=== PATIENT | female | born 1945 | race Caucasian/White ===

== ENCOUNTER 2018-02-08 05:16 | Inpatient (IN) | payer MEDICARE, MEDICAID ==
[2018-02-08] MEDS ORDERED: hydrALAZINE 20 MG/ML VIAL SLOW IVP PRN (06:38)
[2018-02-08] MEDS ORDERED: Ondansetron HCl/PF 4 MG/2 ML Vial IVP PRN (06:38)
[2018-02-08] MEDS ORDERED: Mag-Al 1200 mg/1200 mg/30 ML UDCUP PO PRN (06:38)
[2018-02-08] MEDS ORDERED: Chloraseptic Spray 180 ml Bottle PO PRN (06:38)
[2018-02-08] MEDS ORDERED: Loratadine 10 MG TAB PO PRN (06:38)
[2018-02-08] MEDS ORDERED: Artificial Tears 18 DROP/0.9 ML EA EYE PRN (06:38)
[2018-02-08] MEDS ORDERED: Sodium Chloride 0.65% Nasal 44 ML BOT EA NARE PRN (06:38)
[2018-02-08] MEDS ORDERED: HYDROcodone/Acetaminophen 5/325 mg Tablet PO PRN (06:38)
[2018-02-08] MEDS ORDERED: Loperamide HCl 2 MG CAP PO PRN (06:38)
[2018-02-08] MEDS ORDERED: Zolpidem Tartrate 5 MG TAB PO PRN (06:38)
[2018-02-08] MEDS ORDERED: Senokot 8.6 MG TAB PO PRN (06:38)
[2018-02-08] MEDS ORDERED: Eucerin (Mineral Oil/Petrolatum,White) 30 gm Jar TOP PRN (06:38)
[2018-02-08] MEDS ORDERED: Ondansetron ODT 4 MG TAB PO PRN (06:38)
[2018-02-08] MEDS ORDERED: Diabetic Tussin 200 MG/10 ML UDCUP PO PRN (06:38)
[2018-02-08] MEDS ORDERED: Acetaminophen 325 MG TAB PO PRN (06:38)
[2018-02-08] MEDS ORDERED: Milk Of Magnesia 30 ML UDCUP PO PRN (06:38)
[2018-02-08 07:22] LABS: #Basophils 0.1 thou/uL (0.0-0.2); #Eosinphils 0.2 thou/uL (0.0-0.7); #Lymphocytes 4.2 thou/uL (1.20-3.40); #Monocytes 1.5 thou/uL (0.11-0.59); %Basophils 0.9 % (0.0-1.0); %Eosinophils 1.2 % (0.0-10.0); %Monocytes 10.8 % (0.0-10.0); %Neutrophils 57.1 % (42.0-75.0); Hemoglobin 12.2 g/dL (12.0-16.0); Mean Corpuscular HGB CONC 33.6 g/dL (32.0-36.0); Mean Corpuscular Hemoglobin 31.9 pg (27.0-31.0); Mean Corpuscular Volume 94.8 fl (81.0-99.0); Mean Platelet Volume 8.3 fL (7.4-10.4); Platelet Count 216 thou/uL (130-400); RBC Distribution Width 13.3 % (11.5-14.5); Red Blood Cell (RBC) Count 3.82 mill/uL (4.20-5.40)
[2018-02-08 07:25] LABS: ALT (SGPT) 11 U/L (8-55); AST (SGOT) 29 U/L (5-34); Albumin 3.5 g/dL (3.4-4.8); Alkaline Phosphatase 134 U/L (40-150); Anion Gap 13 mmol/L (10-20); BUN (Urea Nitrogen) 12 mg/dL (9.8-20.1); Bilirubin, Total 0.4 mg/dL (0.2-1.2); Calc. Creatinine Clearance 0 mL/min (70-130); Calcium 8.6 mg/dL (7.8-10.44); Carbon Dioxide 20 mmol/L (23-31); Chloride 105 mmol/L (98-107); Estimated GFR-MDRD 30; Globulin 3.3 g/dL (2.4-3.5); Glucose 110 mg/dL (83-110); Potassium 3.4 mmol/L (3.5-5.1); Protein, Total 6.8 g/dL (6.0-8.3); Sodium 135 mmol/L (136-145)
[2018-02-08 07:27] LABS: INR-International Normal Ratio 1.3; PTT 36.5 SEC (22.9-36.1); Prothrombin Time 16.1 SEC (12.0-14.7)
[2018-02-08 07:36] VITALS: BMI 33.9
[2018-02-08] MEDS ORDERED: Enoxaparin Sodium 100 MG/ML SYRINGE SC SCH (08:00)
[2018-02-08] MEDS ORDERED: Potassium Chloride 20 MEQ TAB PO SCH (08:00)
--- NOTE | 2018-02-08 09:27 | ULT ---
BILATERAL LOWER EXTREMITY VENOUS DUPLEX ULTRASOUND INCLUDING COLOR AND SPECTRAL DOPPLER IMAGING: HISTORY: A 72-year-old female with a history of bilateral lower extremity edema. FINDINGS: Exam performed from groin to ankle including visualized greater saphenous, common femoral, superficia l femoral, profunda femoral, popliteal, trifurcation, and posterior tibial vein regions. There is ph asic flow at all levels with normal compressibility and normal augmentation. No intraluminal thrombu s. IMPRESSION: No evidence for deep venous thrombosis. POS: [facility]
[2018-02-08] MEDS: guaiFENesin ER 600 MG TAB PO SCH ×2 (09:38→20:45)
[2018-02-08] MEDS: cefTRIAXone\\ROCEPHIN 1 GM in Sodium Chloride 0.9% 100 ML IVPB SCH (09:39)
[2018-02-08] MEDS: Sodium Chloride 0.9% 1,000 ML IV SCH ×2 (09:44→18:08)
--- NOTE | 2018-02-08 10:12 | NM ---
VENTILATION PERFUSION LUNG SCAN: INDICATION: Shortness of breath. Assess for pulmonary embolus. COMPARISON: Correlation is made to chest film of 02/08/18 which shows opacities in the left lung base. FINDINGS: Ventilation scan performed with inhalation of 15 mCi of Xenon gas. Anterior and posterior images obt ained. No ventilation defect. Decreased ventilation in the left lung base consistent with x-ray findings. No significant air trapping. Perfusion scan performed with administration of 6 mCi of Technetium labeled MAA IV. Lungs imaged in 8 projections. No perfusion defect. Decreased perfusion in the left lung base consistent with chest x-ray findings. IMPRESSION: Low probability of pulmonary embolus. POS: [facility]
[2018-02-08] MEDS: Azithromycin 500 MG in Sodium Chloride 0.9% 250 ML 250 ML IVPB SCH (10:39)
--- NOTE | 2018-02-08 13:14 | HP ---
PRIMARY CARE PHYSICIAN: Dr. Jaswant Garza. REASON FOR ADMISSION: Transfer from [facility] for left lower lobe pneumonia. HISTORY OF PRESENT ILLNESS: A 72-year-old female who has history of hypertension, CAD, COPD who init ially went to [facility] for evaluation of left-sided pleuritic chest pain and short ness of breath which was started 2 days ago. The patient reports that she has left upper abdomen and left lower chest pain which is pleuritic in nature, gets worse with deep breathing and coughing asso ciated with shortness of breath. She was feeling subjective fever at home, but she did not measure t emperature. When she went to [facility], she was having low grade fever. She was h aving only a dry cough without any phlegm. She denies any hemoptysis. She was experiencing wheezing . She denies any constipation or diarrhea. She denies any hematuria, melena, hematemesis. For these symptoms, patient initially went to primary care physician who attributed to be due to musc le strain and told that if symptoms get worse, then she needs to go to emergency room. The patient was not feeling any better and her symptoms were getting worse. Her pain was not control led with routine pain medication and that is why she went to [facility]. Patient reports that for last 2 weeks, she had a vein ablation done 1 week ago in right lower extremi ty and 2 weeks ago was done in left lower extremity. The patient denies any calf tenderness. She de nies any dizziness, syncope, orthopnea, PND or leg swelling. The patient was treated with Rocephin and azithromycin at [facility]. Subsequently, she was transferred to our emergency room and admitted to medical floor. She had elevated D-dimer and that is why we did VQ scan and ultrasound of the lower extremity, both w ere negative for any DVT or thromboembolic disorder. Patient was given 1 time dose of Lovenox 1 mg p er kg after admission. REVIEW OF SYSTEMS: The following complete review of systems was negative, unless otherwise mentioned in the HPI or below: Constitutional: Weight loss or gain, ability to conduct usual activities. Sk in: Rash, itching. Eyes: Double vision, pain. ENT/Mouth: Nose bleeding, neck stiffness, pain, te nderness. Cardiovascular: Palpitations, dyspnea on exertion, orthopnea. Respiratory: Shortness of breath, wheezing, cough, hemoptysis, fever or night sweats. Gastrointestinal: Poor appetite, abdom inal pain, heartburn, nausea, vomiting, constipation, or diarrhea. Genitourinary: Urgency, frequenc y, dysuria, nocturia. Musculoskeletal: Pain, swelling. Neurologic/Psychiatric: Anxiety, depressio n. Allergy/Immunologic: Skin rash, bleeding tendency. Please see my HPI for pertinent positive and negative. All other review of systems reviewed and nega tive except as mentioned in the HPI. EMERGENCY ROOM COURSE: Patient is given Rocephin 1 gram, DuoNeb therapy, Toradol 15 mg IV push. PAST MEDICAL HISTORY: Ischemic CVA; hypertension; dyslipidemia; COPD; fibromyalgia; coronary artery disease, required angioplasty; chronic kidney disease, stage 3; chronic venous insufficiency, require d vein ablation, left leg on 01/29/2018 in the right leg on 02/05/2018. PAST SURGICAL HISTORY: Vein ablation required in left leg in 01/29/2018 and right leg on 02/05/2018, ovarian tumor removed before hysterectomy. Subsequently, patient had a hysterectomy, eye surgery. PAST PSYCHIATRIC HISTORY: Anxiety, depression, bipolar disorder. SOCIAL HISTORY: Patient drinks alcohol socially. The patient denies any other illicit drug abuse. She is a former smoker. She quit smoking 10 years ago. FAMILY HISTORY: No strong family history of premature coronary artery disease, stroke or cancer. ALLERGIES: Patient is allergic to multiple drugs including CIPRO, DEPAKOTE, LIPITOR, MAGNESIUM SULFA TE, MORPHINE, REMERON, ZOCOR, ZYPREXA, SULFA DRUGS. CURRENT HOME MEDICATIONS: Aspirin 81 mg p.o. daily, pravastatin 20 mg p.o. at bedtime, Plavix 75 mg p.o. daily, Lasix 20 mg p.o. weekly, trazodone 100 mg p.o. daily, trandolapril 4 mg twice daily, Sero quel 100 mg twice daily, tramadol 100 mg twice daily, sumatriptan 50 mg as needed, Ventolin inhaler 2 puffs q.6 hourly p.r.n., coenzyme Q10 of 200 mg twice daily, vitamin B12 of 1000 mcg p.o. daily, mag nesium 250 mg daily, zinc 50 mg p.o. daily, folic acid 0.4 mg p.o. daily, Cymbalta 30 mg p.o. daily. PHYSICAL EXAMINATION: VITAL SIGNS: On arrival to our emergency room, blood pressure 112/58, pulse 65, respiratory rate 20, temperature 98.1, saturation 92% on room air, weight 95.2 kilograms. GENERAL: Patient is currently alert, awake, no obvious acute distress. HEAD: Normocephalic, atraumatic. EYES: Pupils round, reactive to light. Extraocular muscle intact. ENT: Oropharynx within normal limits. Moist mucous membranes. No oral lesions. No pharyngeal eryt justice, no exudate. NECK: Supple, no JVD, no thyromegaly, no carotid bruit. LUNGS: Left lower lobe rales noted. No wheezing, no rhonchi. Bronchial breath sound at left lower lobe. CARDIAC: S1, S2 appears regular. No murmur, no gallop, no rub. ABDOMEN: Soft, bowel sounds present, nontender, nondistended. No organomegaly, no mass, no suprapub ic tenderness. BACK: Unremarkable, no CVA tenderness. EXTREMITIES: Upper extremity: Passive movements of all joints are normal. Lower extremities: No e vonnie. Good peripheral pulsation, no calf tenderness. SKIN: No skin rash. HEMATOLOGICAL: No lymphadenopathy. PSYCHIATRIC: Normal affect. NEUROLOGIC: Nonfocal examination. Patient is moving all 4 limbs. Plantar bilateral flexor. SIGNIFICANT LABORATORY DATA: EKG showing normal sinus rhythm, nonspecific ST-T changes. CT of the a bdomen and pelvis done at [facility] which showed a left lower lobe consolidation wi th septal consolidation concerning for pulmonary infarction. Ultrasound of lower extremity negative for any DVT. Ventilation perfusion scan negative for any pulmonary embolism. Chest x-ray showed lef t base, left pleural parenchymal changes in left base. SIGNIFICANT LABORATORY DATA: WBC 14.0, hemoglobin 12.2, platelet 216. The INR 1.3. D-dimer 3.8. B MP: Sodium 135, potassium 3.4, chloride 105, carbon dioxide 20, anion gap 13, BUN 12, creatinine 1.6 6, glucose 110, calcium 8.6. LFT: AST 29, ALT 11, alkaline phosphatase 134, albumin 3.5. ASSESSMENT AND PLAN/IMPRESSION: 1. Left lower lobe community-acquired pneumonia. Based on patient's allergy profile, we will treat her with Rocephin 1 gram q.24 hours and azithromycin 500 mg IV daily, Mucinex 600 mg twice daily, Duo Neb q.6 hourly. For her pleuritic pain, we will give her Solu-Medrol 20 mg IV q.8 hourly. We will c ontrol her pain with Tylenol or [place]. 2. Hyponatremia, hypokalemia. Patient will be given potassium 40 mEq p.o. one time dose. Patient w ill be given gentle IV fluid and NS at 75 mL per hour. 3. Chronic kidney disease, stage 3. We will continue with IV fluid and will repeat BMP tomorrow. W e will avoid nephrotoxin agent. 4. Sepsis. The patient has leukocytosis, low grade fever and underlying source of infection is pneu monia. The patient is already on appropriate antibiotic therapy with Rocephin and azithromycin. We will follow up on culture result. 5. Coronary artery disease. We will continue aspirin 81 mg p.o. daily, Plavix 75 mg p.o. daily, pra vastatin 20 mg p.o. daily. 6. Hypertension. We will continue trandolapril 4 mg p.o. daily if blood pressure permits. 7. Dyslipidemia. We will continue pravastatin 20 mg p.o. daily. 8. Anxiety, depression, bipolar disorder. We will continue Seroquel 100 mg p.o. daily, trazodone 10 0 mg p.o. daily. 9. Obesity with BMI 33. Dietary education given, weight loss education given. Healthy lifestyle me asures discussed with the patient. 10. Elevated D-dimer. The patient has low true probability of pulmonary embolism, but we did ultras ound of the lower extremity and negative for deep venous thrombosis. A similarly we did VQ scan quinn use of renal insufficiency and that also showed very low probability of PE. At this point, thromboem bolic disorder completely excluded. We will continue with the treatment for pneumonia. 11. Deep venous thrombosis prophylaxis. Patient will be given Lovenox 40 mg subcu daily. 12. Gastrointestinal prophylaxis. Protonix 40 mg p.o. daily. CODE STATUS: The patient is FULL CODE. Patient does not have any surrogate decision maker. Disposition plan based on clinical course. Plan of care discussed with the patient and family member at bedside in detail.
[2018-02-08 13:34] LABS: Bilirubin Negative (Negative); Blood, Urine Small (Negative); Clarity CLEAR (Clear); Glucose, Urine (Dipstick) Negative (Negative); Leukocyte Negative (Negative); Nitrite Negative (Negative); Protein, Urine (Dipstick) Trace mg/dL (Neg-Trace); Specific Gravity, Urine 1.016 (1.002-1.036); Urobilinogen 0.2 mg/dL (0.2-1.0)
[2018-02-08 13:35] LABS: Bacteria/HPF None Seen HPF (None Seen); Hyaline Casts/LPF 0-3 HYALINE CAST LPF (0-3 Hyaline); Pathc Cast-AUWi Flag 0.14 (0-2.49); Squamous Epithelial 0-3 HPF (0-3); WBC/HPF 0-3 HPF (0-3)
[2018-02-08] MEDS: Simvastatin 5 MG TAB PO SCH (20:45)
[2018-02-09] MEDS: Sodium Chloride 0.9% 1,000 ML IV SCH ×3 (02:44→20:35)
[2018-02-09] MEDS: Azithromycin 500 MG in Sodium Chloride 0.9% 250 ML 250 ML IVPB SCH (07:42)
[2018-02-09] MEDS: guaiFENesin ER 600 MG TAB PO SCH ×2 (07:43→20:35)
[2018-02-09] MEDS: Aspirin 81 mg Enteric Coated Tablet PO SCH (07:43)
[2018-02-09] MEDS: Enoxaparin Sodium 40 MG/0.4 ML SYRINGE SC SCH (07:43)
[2018-02-09] MEDS: traZODone HCl 50 MG TAB PO SCH (07:43)
[2018-02-09] MEDS: Clopidogrel Bisulfate 75 MG TAB PO SCH (07:44)
[2018-02-09] MEDS ORDERED: TRANDOLAPRIL 4 MG PO SCH (09:00)
[2018-02-09] MEDS ORDERED: Pravastatin Sodium 20 MG TAB PO SCH (09:00)
[2018-02-09] MEDS: cefTRIAXone\\ROCEPHIN 1 GM in Sodium Chloride 0.9% 100 ML IVPB SCH (09:18)
[2018-02-09 09:23] LABS: Anion Gap 15 mmol/L (10-20); BUN (Urea Nitrogen) 12 mg/dL (9.8-20.1); Calc. Creatinine Clearance 62 mL/min (70-130); Calcium 8.9 mg/dL (7.8-10.44); Carbon Dioxide 16 mmol/L (23-31); Chloride 110 mmol/L (98-107); Estimated GFR-MDRD 43; Glucose 144 mg/dL (83-110); Potassium 4.2 mmol/L (3.5-5.1); Sodium 137 mmol/L (136-145)
--- NOTE | 2018-02-09 14:27 | PDOC.PN ---
- Subjective Encounter Start Date: 02/09/18 Encounter Start Time: 14:25 Subjective: feels a little better.having blood tinged cough -: no cp but SOB w exertion - Objective Resuscitation Status: Resuscitation Status FULL:Full Resuscitation MAR Reviewed: Yes Vital Signs & Weight: Vital Signs (12 hours) Temp Pulse Resp BP Pulse Ox 02/09/18 13:48 92 20 02/09/18 11:10 97.4 F L 87 14 118/72 94 L 02/09/18 08:00 98.6 F 88 16 95 02/09/18 07:13 98.6 F 88 16 121/72 93 L 02/09/18 06:13 92 L 02/09/18 06:11 86 20 92 L 02/09/18 04:00 98.6 F 90 18 123/74 94 L Weight Weight 210 lb I&O: 02/08/18 02/09/18 02/10/18 06:59 06:59 06:59 Intake Total 1780 480 Balance 1780 480 Result Diagrams: 02/08/18 06:58 02/09/18 08:52 Additional Labs: Microbiology 02/08/18 02:15 Venous blood - Left Hand Blood Culture - Preliminary Specimen has been received and culture in progress. No Growth to date. Laboratory Tests 02/08/18 02/09/18 06:58 08:52 Creatinine 1.66 H 1.23 H Phys Exam - Physical Examination Constitutional: NAD HEENT: PERRLA, moist MMs, sclera anicteric, oral pharynx no lesions Neck: no nodes, no JVD, supple, full ROM Respiratory: no rales, no rhonchi, wheezing present Cardiovascular: RRR, no significant murmur, no rub Gastrointestinal: soft, non-tender, no distention, positive bowel sounds Musculoskeletal: no edema, pulses present Neurological: non-focal, normal sensation, moves all 4 limbs Psychiatric: normal affect, A&O x 3 Skin: no rash Dx/Plan (1) CAP (community acquired pneumonia) Code(s): J18.9 - PNEUMONIA, UNSPECIFIED ORGANISM Status: Acute (2) Sepsis Code(s): A41.9 - SEPSIS, UNSPECIFIED ORGANISM Status: Acute (3) Acute on chronic kidney failure Code(s): N17.9 - ACUTE KIDNEY FAILURE, UNSPECIFIED; N18.9 - CHRONIC KIDNEY DISEASE, UNSPECIFIED Status: Acute (4) HTN (hypertension) Code(s): I10 - ESSENTIAL (PRIMARY) HYPERTENSION Status: Chronic (5) CAD (coronary artery disease) Code(s): I25.10 - ATHSCL HEART DISEASE OF [place] CORONARY ARTERY W/O ANG PCTRS Status: Chronic (6) HLD (hyperlipidemia) Code(s): E78.5 - HYPERLIPIDEMIA, UNSPECIFIED Status: Chronic (7) COPD (chronic obstructive pulmonary disease) Status: Chronic (8) Hyponatremia Code(s): E87.1 - HYPO-OSMOLALITY AND HYPONATREMIA Status: Resolved (9) Hypokalemia Code(s): E87.6 - HYPOKALEMIA Status: Resolved - Plan continue antibiotics, PT/OT, respiratory therapy, incentive spirometry, out of bed/ambulate, DVT proph w/SCDs cont empric ABx.follow final Cx results. -: cont nebs,steroids,o2 prn.wean as tolerated -: cont home meds as below.on ASA.plavix,statin,REGINE-I -: renal Fx imrpoved.monitor.hemodynamically stable -: Labs reviewed.recheck in am * . Review of Systems - Review of Systems Constitutional: weakness, malaise. negative: fever, chills, sweats, other ENT: negative: Ear Pain, Ear Discharge, Nose Pain, Nose Discharge, Nose Congestion, Mouth Pain, Mouth Swelling, Throat Pain, Throat Swelling, Other Respiratory: Cough, Sputum, Wheezing. negative: Dry, Shortness of Breath, Hemoptysis, SOB with Excertion, Pleuritic Pain Cardiovascular: negative: chest pain, palpitations, orthopnea, paroxysmal nocturnal dyspnea, edema, light headedness, other Gastrointestinal: negative: Nausea, Vomiting, Abdominal Pain, Diarrhea, Constipation, Melena, Hematochezia, Other Genitourinary: negative: Dysuria, Frequency, Incontinence, Hematuria, Retention , Other Musculoskeletal: negative: Neck Pain, Shoulder Pain, Arm Pain, Back Pain, Hand Pain, Leg Pain, Foot Pain, Other Neurological: negative: Weakness, Numbness, Incoordination, Change in Speech, Confusion, Seizures, Other - Medications/Allergies Allergies/Adverse Reactions: Allergies Allergy/AdvReac Type Severity Reaction Status Date / Time ciprofloxacin [From Cipro] Allergy Verified 02/08/18 07:29 divalproex sodium Allergy Verified 02/08/18 07:29 [From Depakote] egg Allergy Verified 02/08/18 07:29 Egg Derived Allergy Verified 02/08/18 07:29 magnesium sulfate Allergy Verified 02/08/18 07:30 mirtazapine [From Remeron] Allergy Verified 02/08/18 07:30 morphine Allergy Verified 02/08/18 07:30 olanzapine [From Zyprexa] Allergy Verified 02/08/18 07:30 red dye Allergy Verified 02/08/18 07:43 simvastatin Allergy Verified 02/08/18 07:30 Sulfa (Sulfonamide Allergy Verified 02/08/18 07:30 Antibiotics) Medications: Current Medications Acetaminophen (Tylenol) 650 mg PO Q4H PRN PRN Reason: Headache/Fever or Pain Hydrocodone Bitart/Acetaminophen (Loraine 5/325) 1 tab PO Q4H PRN PRN Reason: Moderate Pain (4-6) Albuterol/Ipratropium (Duoneb) 3 ml NEB [id number] [facility] Last Admin: 02/09/18 13:48 Dose: 3 ml Artificial Tears (Tears Naturale) 0 drop EA EYE PRN PRN PRN Reason: Dry Eyes Aspirin (Ecotrin) 81 mg PO DAILY [facility] Last Admin: 02/09/18 07:43 Dose: 81 mg Clopidogrel Bisulfate (Plavix) 75 mg PO DAILY [facility] Last Admin: 02/09/18 07:44 Dose: 75 mg Enoxaparin Sodium (Lovenox) 40 mg SC 0900 [facility] Last Admin: 02/09/18 07:43 Dose: 40 mg Guaifenesin (Robitussin Sf) 200 mg PO Q4H PRN PRN Reason: Cough Guaifenesin (Mucinex) 600 mg PO Q12HR [facility] Last Admin: 02/09/18 07:43 Dose: 600 mg Hydralazine HCl (Apresoline) 10 mg SLOW IVP Q4H PRN PRN Reason: Systolic BP > 180 Sodium Chloride (Normal Saline 0.9%) 1,000 mls @ 75 mls/hr IV .[id number] [facility] Last Admin: 02/09/18 07:49 Dose: Not Given Azithromycin 500 mg/ Sodium (Chloride) 250 mls @ 250 mls/hr IVPB 0900 [facility] Last Admin: 02/09/18 07:42 Dose: 250 mls Ceftriaxone Sodium 1 gm/ (Sodium Chloride) 100 mls @ 200 mls/hr IVPB 0800 [facility] Last Admin: 02/09/18 09:18 Dose: 100 mls Loperamide HCl (Imodium) 2 mg PO PRN PRN PRN Reason: Diarrhea/Loose Stools Loratadine (Claritin) 10 mg PO DAILYPRN PRN PRN Reason: Sinus Symptoms Methylprednisolone Sodium Succinate (Solu-Medrol) 20 mg IVP Q8HR [facility] Last Admin: 02/09/18 13:57 Dose: 20 mg Mineral Oil/White Petrolatum (Eucerin Cream) 0 gm TOP BIDPRN PRN PRN Reason: Dry Skin Ondansetron HCl (Zofran Odt) 4 mg PO Q6H PRN PRN Reason: Nausea/Vomiting Ondansetron HCl (Zofran) 4 mg IVP Q6H PRN PRN Reason: Nausea/Vomiting Pantoprazole Sodium (Protonix) 40 mg PO DAILY [facility] Last Admin: 02/09/18 07:43 Dose: 40 mg Phenol (Chloraseptic Fowler 180 Ml Bot) 0 ml PO PRN PRN PRN Reason: Sore Throat Quetiapine Fumarate (Seroquel) 100 mg PO DAILY [facility] Last Admin: 02/09/18 07:44 Dose: 100 mg Senna (Senokot) 2 tab PO HSPRN PRN PRN Reason: Constipation Simvastatin (Zocor) 10 mg PO HS [facility] Last Admin: 02/08/18 20:45 Dose: 10 mg Sodium Chloride ([place] Nasal Fowler 0.65%) 0 ml EA NARE QIDPRN PRN PRN Reason: Nasal Congestion Sodium Chloride (Flush - Normal Saline) 10 ml IVF Q12HR [facility] Last Admin: 02/09/18 07:49 Dose: Not Given Sodium Chloride (Flush - Normal Saline) 10 ml IVF PRN PRN PRN Reason: Saline Flush Trandolapril (Mavik) 4 mg PO DAILY [facility] Last Admin: 02/09/18 07:42 Dose: 4 mg Trazodone HCl (Desyrel) 100 mg PO DAILY [facility] Last Admin: 02/09/18 07:43 Dose: 100 mg Zolpidem Tartrate (Ambien) 5 mg PO HSPRN PRN PRN Reason: Insomnia
[2018-02-09] MEDS ORDERED: Benzonatate 100 MG CAP PO PRN (14:30)
[2018-02-09] MEDS: Simvastatin 5 MG TAB PO SCH (20:35)
[2018-02-10 05:22] LABS: #Lymphocytes 1.5 thou/uL (1.20-3.40); #Monocytes 0.7 thou/uL (0.11-0.59); #Neutrophils 17.6 thou/uL (1.40-6.50); %Lymphocytes 7.7 % (21.0-51.0); %Monocytes 3.6 % (0.0-10.0); %Neutrophils 88.7 % (42.0-75.0); Hemoglobin 12.6 g/dL (12.0-16.0); Mean Corpuscular HGB CONC 33.5 g/dL (32.0-36.0); Mean Corpuscular Hemoglobin 31.8 pg (27.0-31.0); Mean Corpuscular Volume 95.1 fl (81.0-99.0); Mean Platelet Volume 8.3 fL (7.4-10.4); Platelet Count 287 thou/uL (130-400); RBC Distribution Width 13.3 % (11.5-14.5); Red Blood Cell (RBC) Count 3.97 mill/uL (4.20-5.40); White Blood Cell (WBC) Count 19.8 thou/uL (4.8-10.8)
[2018-02-10 05:44] LABS: Anion Gap 17 mmol/L (10-20); BUN (Urea Nitrogen) 15 mg/dL (9.8-20.1); Calc. Creatinine Clearance 54 mL/min (70-130); Calcium 9.3 mg/dL (7.8-10.44); Carbon Dioxide 16 mmol/L (23-31); Chloride 111 mmol/L (98-107); Estimated GFR-MDRD 37; Glucose 136 mg/dL (83-110); Potassium 4.2 mmol/L (3.5-5.1); Sodium 140 mmol/L (136-145)
[2018-02-10] MEDS: traZODone HCl 50 MG TAB PO SCH (07:46)
[2018-02-10] MEDS: Azithromycin 500 MG in Sodium Chloride 0.9% 250 ML 250 ML IVPB SCH (07:47)
[2018-02-10] MEDS: Clopidogrel Bisulfate 75 MG TAB PO SCH (07:47)
[2018-02-10] MEDS: Aspirin 81 mg Enteric Coated Tablet PO SCH (07:47)
[2018-02-10] MEDS: guaiFENesin ER 600 MG TAB PO SCH ×2 (07:47→20:23)
[2018-02-10] MEDS: Enoxaparin Sodium 40 MG/0.4 ML SYRINGE SC SCH (07:50)
[2018-02-10] MEDS: cefTRIAXone\\ROCEPHIN 1 GM in Sodium Chloride 0.9% 100 ML IVPB SCH (09:11)
--- NOTE | 2018-02-10 13:26 | PDOC.PN ---
- Subjective Encounter Start Date: 02/10/18 Encounter Start Time: 13:24 Subjective: feels much better. no SOB @ rest ,some w ambulation-at baseline -: no fever/chills/cough - Objective Resuscitation Status: Resuscitation Status FULL:Full Resuscitation MAR Reviewed: Yes Vital Signs & Weight: Vital Signs (12 hours) Temp Pulse Resp BP Pulse Ox 02/10/18 08:00 98.4 F 65 18 97 02/10/18 07:29 65 18 93 L 02/10/18 07:21 97.8 F 67 16 143/64 H 94 L 02/10/18 05:11 87 20 95 02/10/18 04:00 98.3 F 83 18 135/80 92 L 02/10/18 02:26 94 L Weight Weight 210 lb I&O: 02/09/18 02/10/18 02/11/18 06:59 06:59 06:59 Intake Total 1780 2460 480 Balance 1780 2460 480 Result Diagrams: 02/10/18 05:06 02/10/18 05:06 Additional Labs: Microbiology 02/08/18 02:15 Venous blood - Left Hand Blood Culture - Preliminary Coagulase Neg Staphylococcus 02/08/18 02:00 Venous blood - Left Hand Blood Culture - Preliminary Coagulase Neg Staphylococcus Laboratory Tests 02/08/18 02/09/18 02/10/18 06:58 08:52 05:06 Creatinine 1.66 H 1.23 H 1.41 H Phys Exam - Physical Examination Constitutional: NAD HEENT: PERRLA, moist MMs, sclera anicteric, oral pharynx no lesions Neck: no nodes, no JVD, supple, full ROM Respiratory: no wheezing, no rales, no rhonchi, clear to auscultation bilateral Cardiovascular: RRR, no significant murmur, no rub Gastrointestinal: soft, non-tender, no distention, positive bowel sounds Musculoskeletal: no edema, pulses present Neurological: non-focal, normal sensation, moves all 4 limbs Psychiatric: normal affect, A&O x 3 Skin: no rash Dx/Plan (1) Coag negative Staphylococcus bacteremia Code(s): R78.81 - BACTEREMIA Status: Acute Comment: Unclear significance.2/ 2 (2) CAP (community acquired pneumonia) Code(s): J18.9 - PNEUMONIA, UNSPECIFIED ORGANISM Status: Acute Qualifiers: Laterality: right Lung location: middle lobe of lung Qualified Code(s): J18.1 - Lobar pneumonia, unspecified organism (3) Sepsis Code(s): A41.9 - SEPSIS, UNSPECIFIED ORGANISM Status: Acute (4) Acute on chronic kidney failure Code(s): N17.9 - ACUTE KIDNEY FAILURE, UNSPECIFIED; N18.9 - CHRONIC KIDNEY DISEASE, UNSPECIFIED Status: Acute (5) HTN (hypertension) Code(s): I10 - ESSENTIAL (PRIMARY) HYPERTENSION Status: Chronic (6) CAD (coronary artery disease) Code(s): I25.10 - ATHSCL HEART DISEASE OF [place] CORONARY ARTERY W/O ANG PCTRS Status: Chronic (7) HLD (hyperlipidemia) Code(s): E78.5 - HYPERLIPIDEMIA, UNSPECIFIED Status: Chronic (8) COPD (chronic obstructive pulmonary disease) Status: Chronic (9) Hyponatremia Code(s): E87.1 - HYPO-OSMOLALITY AND HYPONATREMIA Status: Resolved (10) Hypokalemia Code(s): E87.6 - HYPOKALEMIA Status: Resolved (11) LAKIA (obstructive sleep apnea) Code(s): G47.33 - OBSTRUCTIVE SLEEP APNEA (ADULT) (PEDIATRIC) Status: Chronic (12) Chronic CHF Code(s): I50.9 - HEART FAILURE, UNSPECIFIED Status: Chronic Qualifiers: Heart failure type: unspecified Qualified Code(s): I50.9 - Heart failure, unspecified - Plan PT/OT, incentive spirometry, DVT proph w/lovenox, DVT proph w/SCDs cont rocephin & AZITHROMYCIN for now.follow final Cx results -: not sure if Coag -ve staph is true infection Vs contaminanat -: will consult ID for same.clinically better -: leucocytosis is due to steroids.will taper now -: cont supportive care. * .add CPAP at night * CHf appears stable.BNP checked and minimally elevated .IVf stopped * ivett WALLACE early tomorrow am as pt has appt w her normalizer in afternoon in [place] * am labs Review of Systems - Review of Systems Constitutional: negative: fever, chills, sweats, weakness, malaise, other ENT: negative: Ear Pain, Ear Discharge, Nose Pain, Nose Discharge, Nose Congestion, Mouth Pain, Mouth Swelling, Throat Pain, Throat Swelling, Other Respiratory: SOB with Excertion. negative: Cough, Dry, Shortness of Breath, Hemoptysis, Pleuritic Pain, Sputum, Wheezing Cardiovascular: negative: chest pain, palpitations, orthopnea, paroxysmal nocturnal dyspnea, edema, light headedness, other Gastrointestinal: negative: Nausea, Vomiting, Abdominal Pain, Diarrhea, Constipation, Melena, Hematochezia, Other Genitourinary: negative: Dysuria, Frequency, Incontinence, Hematuria, Retention , Other Musculoskeletal: negative: Neck Pain, Shoulder Pain, Arm Pain, Back Pain, Hand Pain, Leg Pain, Foot Pain, Other Skin: negative: Rash, Lesions, [place], Bruising, Other Neurological: negative: Weakness, Numbness, Incoordination, Change in Speech, Confusion, Seizures, Other - Medications/Allergies Allergies/Adverse Reactions: Allergies Allergy/AdvReac Type Severity Reaction Status Date / Time ciprofloxacin [From Cipro] Allergy Verified 02/08/18 07:29 divalproex sodium Allergy Verified 02/08/18 07:29 [From Depakote] egg Allergy Verified 02/08/18 07:29 Egg Derived Allergy Verified 02/08/18 07:29 magnesium sulfate Allergy Verified 02/08/18 07:30 mirtazapine [From Remeron] Allergy Verified 02/08/18 07:30 morphine Allergy Verified 02/08/18 07:30 olanzapine [From Zyprexa] Allergy Verified 02/08/18 07:30 red dye Allergy Verified 02/08/18 07:43 simvastatin Allergy Verified 02/08/18 07:30 Sulfa (Sulfonamide Allergy Verified 02/08/18 07:30 Antibiotics) Medications: Current Medications Acetaminophen (Tylenol) 650 mg PO Q4H PRN PRN Reason: Headache/Fever or Pain Hydrocodone Bitart/Acetaminophen ([place] 5/325) 1 tab PO Q4H PRN PRN Reason: Moderate Pain (4-6) Albuterol/Ipratropium (Duoneb) 3 ml NEB [id number] [facility] Last Admin: 02/10/18 07:29 Dose: 3 ml Artificial Tears (Tears Naturale) 0 drop EA EYE PRN PRN PRN Reason: Dry Eyes Aspirin (Ecotrin) 81 mg PO DAILY [facility] Last Admin: 02/10/18 07:47 Dose: 81 mg Benzonatate (Tessalon) 100 mg PO Q4H PRN PRN Reason: Cough Clopidogrel Bisulfate (Plavix) 75 mg PO DAILY [facility] Last Admin: 02/10/18 07:47 Dose: 75 mg Enoxaparin Sodium (Lovenox) 40 mg SC 0900 [facility] Last Admin: 02/10/18 07:50 Dose: 40 mg Guaifenesin (Robitussin Sf) 200 mg PO Q4H PRN PRN Reason: Cough Guaifenesin (Mucinex) 600 mg PO Q12HR [facility] Last Admin: 02/10/18 07:47 Dose: 600 mg Hydralazine HCl (Apresoline) 10 mg SLOW IVP Q4H PRN PRN Reason: Systolic BP > 180 Azithromycin 500 mg/ Sodium (Chloride) 250 mls @ 250 mls/hr IVPB 0900 [facility] Last Admin: 02/10/18 07:47 Dose: 250 mls Ceftriaxone Sodium 1 gm/ (Sodium Chloride) 100 mls @ 200 mls/hr IVPB 0800 [facility] Last Admin: 02/10/18 09:11 Dose: 100 mls Loperamide HCl (Imodium) 2 mg PO PRN PRN PRN Reason: Diarrhea/Loose Stools Loratadine (Claritin) 10 mg PO DAILYPRN PRN PRN Reason: Sinus Symptoms Methylprednisolone Sodium Succinate (Solu-Medrol) 20 mg IVP Q8HR [facility] Last Admin: 02/10/18 05:40 Dose: 20 mg Mineral Oil/White Petrolatum (Eucerin Cream) 0 gm TOP BIDPRN PRN PRN Reason: Dry Skin Ondansetron HCl (Zofran Odt) 4 mg PO Q6H PRN PRN Reason: Nausea/Vomiting Ondansetron HCl (Zofran) 4 mg IVP Q6H PRN PRN Reason: Nausea/Vomiting Pantoprazole Sodium (Protonix) 40 mg PO DAILY [facility] Last Admin: 02/10/18 07:47 Dose: 40 mg Phenol (Chloraseptic [place] 180 Ml Bot) 0 ml PO PRN PRN PRN Reason: Sore Throat Quetiapine Fumarate (Seroquel) 100 mg PO DAILY [facility] Last Admin: 02/10/18 07:47 Dose: 100 mg Senna (Senokot) 2 tab PO HSPRN PRN PRN Reason: Constipation Simvastatin (Zocor) 10 mg PO HS [facility] Last Admin: 02/09/18 20:35 Dose: 10 mg Sodium Chloride ([place] Nasal [place] 0.65%) 0 ml EA NARE QIDPRN PRN PRN Reason: Nasal Congestion Sodium Chloride (Flush - Normal Saline) 10 ml IVF Q12HR [facility] Last Admin: 02/10/18 07:53 Dose: Not Given Sodium Chloride (Flush - Normal Saline) 10 ml IVF PRN PRN PRN Reason: Saline Flush Trazodone HCl (Desyrel) 100 mg PO DAILY [facility] Last Admin: 02/10/18 07:46 Dose: 100 mg Zolpidem Tartrate (Ambien) 5 mg PO HSPRN PRN PRN Reason: Insomnia
--- NOTE | 2018-02-10 20:00 | CON ---
DATE OF CONSULTATION: 02/10/2018 REASON FOR CONSULTATION: Bacteremia. HISTORY OF PRESENT ILLNESS: A 72-year-old patient who has a history of prior CVA, hypertension, COPD, coronary artery disease with previous angioplasty as well as venous insufficiency with recent venous ablations right and left lower extremity, who woke up from her sleep about 3 days ago with pleuritic chest pain , left lateral chest area. The patient went to her primary physician, who felt that she probably had a muscle sprain. Because of lack of improvement in the symptom, she went to the emergency room in [place] and was transferred to [place] and admitted. She had an EKG which showed normal sinus rhythm and CT showed a left lower consolidation which had wedge-shaped quality to it and concerning for pulmonary embolism. Because of her creatinine, VQ scan was done instead and this was a low probability study. The ultrasound of the lower extremities did not show any evidence of deep vein thrombosis though. She never had a temperature elevation documented. REVIEW OF SYSTEMS: Currently, the pain has improved. She denies any headaches , visual symptoms, sore throat, odynophagia, or dysphagia. No cough or sputum production or chest pain. No abdominal pain or diarrhea. No skin disorder. PAST MEDICAL HISTORY: Obesity, prior CVA, hypertension, coronary artery disease , COPD, prior angioplasty, renal insufficiency stage 3, venous insufficiency with recent vein ablation in the right and left lower extremities. The last one was done in the right leg, both in close succession completed procedures. PAST SURGICAL HISTORY: As above. In addition, she had a hysterectomy for tumor removal and cataract surgery. SOCIAL HISTORY: Lives in around [facility]. Drinks occasionally, former smoker, quit 10 years ago. FAMILY HISTORY: Noncontributory. ALLERGIES: CIPRO, LIPITOR, MAGNESIUM, REMERON, ZOCOR, SULFA DRUGS, ZYPREXA. HOME MEDICATIONS: Pravastatin, aspirin, Plavix, Lasix, trazodone, trandolapril , Seroquel, tramadol, sumatriptan, Ventolin inhaler, coenzyme Q, vitamin B12, magnesium 250, zinc, folic acid. PHYSICAL EXAMINATION: VITAL SIGNS: Here in the hospital have been within normal limits. T-max 99.1. She is little bit tachycardic earlier and little bit tachypneic. BP 140/60. SKIN: With little elliptical small ulcerated area in the midline of the lower abdominal fold region. She has peripheral IV access. No Olivares catheter. Voiding spontaneously. No lymphadenopathy. HEENT: Ocular movements conjugate. Oral cavity with no [place] teeth remaining in place. No oral cavity lesions. NECK: Supple. No jugular distention or carotid bruits. LUNGS: With symmetric air entry, faint crackles in the left base and very transient. HEART: S1, S2, regular rate with a soft aortic murmur. No S3 or S4. ABDOMEN: Soft, not distended or tender. No ascites. No bladder distention. The venous ablation entry sites do not have any inflammatory changes. Osteoarthrosis in knees and ankles. EXTREMITIES: Pulses 1+ in dorsalis pedis. Plantar responses are flexure. No edema. She is able to move extremities with no impediment. His cognitive function appears to be intact. LABORATORY DATA: Sodium 135, creatinine 1.66 and now 1.41. Liver profile normal. BNP 341, albumin 3.5. White cell count was 14,000, now is up to 19.8; hemoglobin 12; platelets 287 with 88% neutrophils. Urinalysis was fairly unremarkable. Blood cultures with coagulase negative Staph 2/2 sets obtained 15 minutes apart. The organism still to be identified and susceptibility tested. VQ scan low probability and a venogram lower extremities with no evidence of deep vein thrombosis. ASSESSMENT: 1. Coronary artery disease, chronic obstructive pulmonary disease, prior smoking. 2. Recent venous ablation procedures right and left lower extremities. 3. Sudden onset of pleuritic chest pain with wedge-shaped opacity in the opposite hemithorax on CT scan. DISCUSSION: The patient's symptoms are suggestive of either thromboembolism or a vascular process associated with the bacteremia or may be a more benign source. VQ scan with low probability still do not rule out thromboembolism in patients who have a high pretest likelihood of having pulmonary embolism. The bacteremia significance is yet unclear and we will have to wait for the final identification of the organism as well as the results of the 2D echocardiogram ordered. We will order a dedicated CT scan of chest without contrast to see if she has other areas of wedge-shaped opacity that would increase further the risk of pulmonary embolism or maybe infectious endocarditis. Of interest, the CT scan finding is in the opposite side of the patients chest pain. If the echocardiogram is normal, then we will have to reevaluate the nature of the organism isolated. At this point, we would discontinue antimicrobial therapy and maybe repeat blood cultures tomorrow. Venous ablation procedures are in frequently associated with thromboembolism. The rates in historical series ranged anywhere from 0.7-1 percent of the procedures performed. MTDD
[2018-02-10] MEDS: Simvastatin 5 MG TAB PO SCH (20:22)
--- NOTE | 2018-02-10 20:48 | CT ---
CT CHEST WITHOUT CONTRAST: 02/10/2018 HISTORY: Abnormality within the left lung base on recent CT examination of the abdomen and pelvis. History of shortness of breath. COMPARISON: None. TECHNIQUE: Serial axial CT imaging at 5 mm intervals, from the thoracic inlet through the upper abdomen, without contrast. Coronal reformatted imaging obtained. FINDINGS: The lack of contrast limits assessment of the viscera, bowel, and vascular structures, and for lympha denopathy. There is scattered atherosclerotic calcification of the aortic arch and descending thoracic aorta. L imited assessment of the upper abdomen demonstrates a small sliding type hiatal hernia. There is a v katia small, left-sided pleural effusion, similar when compared to the prior exam. There is a focal ar ea of consolidation involving the inferior-posterior left lower lobe on image 43, measuring 4.5 cm in transverse dimension. Aeration within the left lower lobe has improved since the prior CT of the ab domen and pelvis. No right-sided pleural effusion. No mediastinal or pericardial fluid. No pneumothorax on either side. A linear area of increased density in the lingula suggests volume loss. The osseous structures demonstrate no acute findings. IMPRESSION: Very small left pleural effusion with a focal area of mass like consolidation within the left lower l obe, inferiorly and posteriorly. Findings suggest infectious pneumonitis or aspiration. A follow-up CT examination is advised in 3-4 weeks, following treatment, to document resolution and thus exclude an underlying neoplastic process. CODE T POS: [facility]
[2018-02-11 04:55] LABS: #Basophils 0.1 thou/uL (0.0-0.2); #Eosinphils 0.1 thou/uL (0.0-0.7); #Lymphocytes 3.8 thou/uL (1.20-3.40); #Monocytes 1.1 thou/uL (0.11-0.59); #Neutrophils 10.3 thou/uL (1.40-6.50); %Basophils 0.4 % (0.0-1.0); %Eosinophils 0.5 % (0.0-10.0); %Lymphocytes 24.6 % (21.0-51.0); %Monocytes 7.2 % (0.0-10.0); %Neutrophils 67.3 % (42.0-75.0); Hemoglobin 11.5 g/dL (12.0-16.0); Mean Corpuscular HGB CONC 32.5 g/dL (32.0-36.0); Mean Corpuscular Hemoglobin 30.9 pg (27.0-31.0); Mean Corpuscular Volume 95.1 fl (81.0-99.0); Mean Platelet Volume 8.2 fL (7.4-10.4); Platelet Count 282 thou/uL (130-400); RBC Distribution Width 13.4 % (11.5-14.5); Red Blood Cell (RBC) Count 3.74 mill/uL (4.20-5.40); White Blood Cell (WBC) Count 15.3 thou/uL (4.8-10.8)
[2018-02-11 05:42] LABS: Anion Gap 14 mmol/L (10-20); BUN (Urea Nitrogen) 15 mg/dL (9.8-20.1); Calc. Creatinine Clearance 55 mL/min (70-130); Calcium 8.5 mg/dL (7.8-10.44); Carbon Dioxide 19 mmol/L (23-31); Chloride 111 mmol/L (98-107); Estimated GFR-MDRD 37; Glucose 88 mg/dL (83-110); Potassium 3.6 mmol/L (3.5-5.1); Sodium 140 mmol/L (136-145)
[2018-02-11] MEDS ORDERED: predniSONE 20 MG TAB PO SCH (08:00)
[2018-02-11] MEDS: Aspirin 81 mg Enteric Coated Tablet PO SCH (09:03)
[2018-02-11] MEDS: Clopidogrel Bisulfate 75 MG TAB PO SCH (09:03)
[2018-02-11] MEDS: guaiFENesin ER 600 MG TAB PO SCH ×2 (09:04→20:24)
[2018-02-11] MEDS: predniSONE 20 MG TAB PO SCH (09:04)
[2018-02-11] MEDS: traZODone HCl 50 MG TAB PO SCH (09:04)
[2018-02-11] MEDS: Enoxaparin Sodium 40 MG/0.4 ML SYRINGE SC SCH (09:04)
[2018-02-11] MEDS ORDERED: Cyclobenzaprine 10 MG TAB PO SCH (11:30)
--- NOTE | 2018-02-11 13:57 | ULT ---
BILATERAL RENAL ULTRASOUND: HISTORY: Chronic renal disease, abdominal pain. FINDINGS: The right kidney measures 8 cm in length and the left kidney measures 9.4 cm in length. No focal mas s or hydronephrosis is seen. The urinary bladder is unremarkable. IMPRESSION: No evidence of high-grade obstruction. POS: [facility]
--- NOTE | 2018-02-11 14:00 | PDOC.PN ---
- Subjective Encounter Start Date: 02/11/18 Encounter Start Time: 13:57 Subjective: c/o significant pain in lower back-reports chronic.a/w nausea -: no fever/chills - Objective Resuscitation Status: Resuscitation Status FULL:Full Resuscitation MAR Reviewed: Yes Vital Signs & Weight: Vital Signs (12 hours) Temp Pulse Resp BP Pulse Ox 02/11/18 13:36 77 16 963 H 02/11/18 13:20 98.4 F 81 20 151/80 H 95 02/11/18 09:09 155/85 H 02/11/18 08:00 98.2 F 78 18 96 02/11/18 07:24 98.2 F 78 18 175/77 H 96 02/11/18 06:38 94 L 02/11/18 06:34 71 18 99 02/11/18 05:00 92 L 02/11/18 04:58 97.6 F 75 22 H 121/65 92 L 02/11/18 02:00 95 Weight Weight 210 lb I&O: 02/10/18 02/11/18 02/12/18 06:59 06:59 06:59 Intake Total 2460 2290 Balance 2460 2290 Result Diagrams: 02/11/18 04:34 02/11/18 04:34 Additional Labs: Microbiology 02/08/18 02:15 Venous blood - Left Hand Blood Culture - Final Staph. hominus subsp. hominus 02/08/18 02:00 Venous blood - Left Hand Blood Culture - Final Staph. hominus subsp. hominus Phys Exam - Physical Examination Constitutional: NAD HEENT: PERRLA, moist MMs, sclera anicteric, oral pharynx no lesions Neck: no nodes, no JVD, supple, full ROM Respiratory: no wheezing, no rales, no rhonchi, clear to auscultation bilateral Cardiovascular: RRR, no significant murmur, no rub Gastrointestinal: soft, non-tender, no distention, positive bowel sounds Musculoskeletal: no edema, pulses present Neurological: non-focal, normal sensation, moves all 4 limbs Psychiatric: normal affect, A&O x 3 Skin: no rash Dx/Plan (1) Coag negative Staphylococcus bacteremia Code(s): R78.81 - BACTEREMIA Status: Acute Comment: Staph hominus 2/2 (2) CAP (community acquired pneumonia) Code(s): J18.9 - PNEUMONIA, UNSPECIFIED ORGANISM Status: Acute Qualifiers: Laterality: right Lung location: middle lobe of lung Qualified Code(s): J18.1 - Lobar pneumonia, unspecified organism (3) Sepsis Code(s): A41.9 - SEPSIS, UNSPECIFIED ORGANISM Status: Acute (4) Acute on chronic kidney failure Code(s): N17.9 - ACUTE KIDNEY FAILURE, UNSPECIFIED; N18.9 - CHRONIC KIDNEY DISEASE, UNSPECIFIED Status: Acute Comment: Improving (5) HTN (hypertension) Code(s): I10 - ESSENTIAL (PRIMARY) HYPERTENSION Status: Chronic (6) CAD (coronary artery disease) Code(s): I25.10 - ATHSCL HEART DISEASE OF [place] CORONARY ARTERY W/O ANG PCTRS Status: Chronic (7) HLD (hyperlipidemia) Code(s): E78.5 - HYPERLIPIDEMIA, UNSPECIFIED Status: Chronic (8) COPD (chronic obstructive pulmonary disease) Status: Chronic (9) Hyponatremia Code(s): E87.1 - HYPO-OSMOLALITY AND HYPONATREMIA Status: Resolved (10) Hypokalemia Code(s): E87.6 - HYPOKALEMIA Status: Resolved (11) [place] (obstructive sleep apnea) Code(s): G47.33 - OBSTRUCTIVE SLEEP APNEA (ADULT) (PEDIATRIC) Status: Chronic Comment: CPAP hs (12) Chronic CHF Code(s): I50.9 - HEART FAILURE, UNSPECIFIED Status: Chronic Qualifiers: Heart failure type: unspecified Qualified Code(s): I50.9 - Heart failure, unspecified - Plan continue antibiotics, PT/OT, respiratory therapy, incentive spirometry, out of bed/ambulate, DVT proph w/SCDs discussed w ID.will repeat blood Cx & check ECHo to r/o vegetation -: start Po Levaquin for now. -: Chest Ct c/w LLL PNA.clinically better -: will also check Renal US to r/o infection/stones etc -: no PE/DVT on admission scans.no fever * . Review of Systems - Review of Systems Constitutional: negative: fever, chills, sweats, weakness, malaise, other ENT: negative: Ear Pain, Ear Discharge, Nose Pain, Nose Discharge, Nose Congestion, Mouth Pain, Mouth Swelling, Throat Pain, Throat Swelling, Other Respiratory: negative: Cough, Dry, Shortness of Breath, Hemoptysis, SOB with Excertion, Pleuritic Pain, Sputum, Wheezing Cardiovascular: negative: chest pain, palpitations, orthopnea, paroxysmal nocturnal dyspnea, edema, light headedness, other Gastrointestinal: negative: Nausea, Vomiting, Abdominal Pain, Diarrhea, Constipation, Melena, Hematochezia, Other Genitourinary: negative: Dysuria, Frequency, Incontinence, Hematuria, Retention , Other Musculoskeletal: Back Pain. negative: Neck Pain, Shoulder Pain, Arm Pain, Hand Pain, Leg Pain, Foot Pain, Other Skin: negative: Rash, Lesions, [place], Bruising, Other Neurological: negative: Weakness, Numbness, Incoordination, Change in Speech, Confusion, Seizures, Other - Medications/Allergies Allergies/Adverse Reactions: Allergies Allergy/AdvReac Type Severity Reaction Status Date / Time ciprofloxacin [From Cipro] Allergy Verified 02/08/18 07:29 divalproex sodium Allergy Verified 02/08/18 07:29 [From Depakote] egg Allergy Verified 02/08/18 07:29 Egg Derived Allergy Verified 02/08/18 07:29 magnesium sulfate Allergy Verified 02/08/18 07:30 mirtazapine [From Remeron] Allergy Verified 02/08/18 07:30 morphine Allergy Verified 02/08/18 07:30 olanzapine [From Zyprexa] Allergy Verified 02/08/18 07:30 red dye Allergy Verified 02/08/18 07:43 simvastatin Allergy Verified 02/08/18 07:30 Sulfa (Sulfonamide Allergy Verified 02/08/18 07:30 Antibiotics) Medications: Current Medications Acetaminophen (Tylenol) 650 mg PO Q4H PRN PRN Reason: Headache/Fever or Pain Hydrocodone Bitart/Acetaminophen ([place] 5/325) 1 tab PO Q4H PRN PRN Reason: Moderate Pain (4-6) Last Admin: 02/11/18 09:03 Dose: 1 tab Albuterol/Ipratropium (Duoneb) 3 ml NEB [id number] [facility] Last Admin: 02/11/18 13:36 Dose: 3 ml Artificial Tears (Tears Naturale) 0 drop EA EYE PRN PRN PRN Reason: Dry Eyes Aspirin (Ecotrin) 81 mg PO DAILY [facility] Last Admin: 02/11/18 09:03 Dose: 81 mg Benzonatate (Tessalon) 100 mg PO Q4H PRN PRN Reason: Cough Clopidogrel Bisulfate (Plavix) 75 mg PO DAILY [facility] Last Admin: 02/11/18 09:03 Dose: 75 mg Enoxaparin Sodium (Lovenox) 40 mg SC 0900 [facility] Last Admin: 02/11/18 09:04 Dose: 40 mg Guaifenesin (Robitussin Sf) 200 mg PO Q4H PRN PRN Reason: Cough Guaifenesin (Mucinex) 600 mg PO Q12HR [facility] Last Admin: 02/11/18 09:04 Dose: 600 mg Hydralazine HCl (Apresoline) 10 mg SLOW IVP Q4H PRN PRN Reason: Systolic BP > 180 Levofloxacin (Levaquin) 500 mg PO 1100 [facility] Last Admin: 02/11/18 11:52 Dose: 500 mg Loperamide HCl (Imodium) 2 mg PO PRN PRN PRN Reason: Diarrhea/Loose Stools Loratadine (Claritin) 10 mg PO DAILYPRN PRN PRN Reason: Sinus Symptoms Mineral Oil/White Petrolatum (Eucerin Cream) 0 gm TOP BIDPRN PRN PRN Reason: Dry Skin Ondansetron HCl (Zofran Odt) 4 mg PO Q6H PRN PRN Reason: Nausea/Vomiting Ondansetron HCl (Zofran) 4 mg IVP Q6H PRN PRN Reason: Nausea/Vomiting Pantoprazole Sodium (Protonix) 40 mg PO DAILY [facility] Last Admin: 02/11/18 09:04 Dose: 40 mg Phenol (Chloraseptic [place] 180 Ml Bot) 0 ml PO PRN PRN PRN Reason: Sore Throat Prednisone (Prednisone) 20 mg PO QA-[facility] Last Admin: 02/11/18 09:04 Dose: 20 mg Quetiapine Fumarate (Seroquel) 100 mg PO DAILY [facility] Last Admin: 02/11/18 09:04 Dose: 100 mg Senna (Senokot) 2 tab PO HSPRN PRN PRN Reason: Constipation Simvastatin (Zocor) 10 mg PO HS [facility] Last Admin: 02/10/18 20:22 Dose: 10 mg Sodium Chloride ([place] Nasal [place] 0.65%) 0 ml EA NARE QIDPRN PRN PRN Reason: Nasal Congestion Sodium Chloride (Flush - Normal Saline) 10 ml IVF Q12HR [facility] Last Admin: 02/11/18 09:04 Dose: 10 ml Sodium Chloride (Flush - Normal Saline) 10 ml IVF PRN PRN PRN Reason: Saline Flush Trazodone HCl (Desyrel) 100 mg PO DAILY [facility] Last Admin: 02/11/18 09:04 Dose: 100 mg Zolpidem Tartrate (Ambien) 5 mg PO HSPRN PRN PRN Reason: Insomnia
[2018-02-11] MEDS: Simvastatin 5 MG TAB PO SCH (20:24)
--- NOTE | 2018-02-12 02:36 | CON ---
DATE OF CONSULTATION: 02/11/2018 CONSULTING PHYSICIAN: Malcolm Leggett M.D. REQUESTING PHYSICIAN: Dr. Espinoza. REASON FOR CONSULTATION: Chronic kidney disease. IMPRESSION: 1. Acute on chronic kidney disease, but much improved at this time of dictation. 2. Pneumonia, on treatment. 3. Metabolic acidosis. PLAN: 1. Continue current renal supportive measures. 2. Renally dose all medications and avoid potentially nephrotoxic agents. 3. Further management to be dependent on the clinical course. HISTORY OF PRESENT ILLNESS: History is that of 72-year-old female patient who presented here as a tr ansfer from [place] with features of pneumonia. The patient noted with a creatinine of 1.6 by o stephane the course of hospitalization, this has improved to creatinine of 1.39, putting this patient effe ctively as chronic kidney disease stage 3. Otherwise, the patient denies any other complaints. PAST MEDICAL HISTORY: Significant for chronic kidney disease, hypertension, ischemic CVA, dyslipidem ia, COPD, fibromyalgia, coronary artery disease. CURRENT MEDICATIONS: Reviewed and as documented on [employer]. SOCIAL HISTORY: Denies alcohol, no illicit drug. Remote tobacco use. FAMILY HISTORY: Not significantly related to presenting illness. ALLERGIES: CIPRO, DEPAKOTE, LIPITOR, MAGNESIUM SULFATE, MORPHINE, REMERON, ZOCOR, ZYPREXA and SULFA DRUGS. PHYSICAL EXAMINATION: GENERAL: The patient was found to be in mild respiratory distress and noted with the following vital signs. VITAL SIGNS: Afebrile with temperature 98.4, pulse 81, respiratory rate of 20, O2 saturation of 96%, blood pressure 151/80. HEENT: Unremarkable with moist oral mucosa. Neck was supple. No conjunctival injection or icterus. CARDIOVASCULAR SYSTEM: First and second heart sounds were heard. RESPIRATORY SYSTEM: Reveal some transmitted sounds from breathing machine. DIGESTIVE SYSTEM: Revealed an obese abdomen. EXTREMITIES: No peripheral edema. SKIN: No new gross rash. LYMPHATICS: No peripheral lymphadenopathy. SUMMARY: A 72-year-old female patient who presented here with slightly elevated creatinine above her baseline in the context of possible cytokine-mediated injury from pneumonia. Thank you for this consultation. We will follow with you.
[2018-02-12 05:13] LABS: #Eosinphils 0.1 thou/uL (0.0-0.7); #Lymphocytes 3.4 thou/uL (1.20-3.40); #Monocytes 0.7 thou/uL (0.11-0.59); %Basophils 0.4 % (0.0-1.0); %Eosinophils 1.1 % (0.0-10.0); %Monocytes 6.8 % (0.0-10.0); %Neutrophils 58.7 % (42.0-75.0); Hemoglobin 11.4 g/dL (12.0-16.0); Mean Corpuscular HGB CONC 33.3 g/dL (32.0-36.0); Mean Corpuscular Hemoglobin 31.6 pg (27.0-31.0); Mean Corpuscular Volume 94.8 fl (81.0-99.0); Mean Platelet Volume 8.1 fL (7.4-10.4); Platelet Count 251 thou/uL (130-400); RBC Distribution Width 13.3 % (11.5-14.5); White Blood Cell (WBC) Count 10.2 thou/uL (4.8-10.8)
[2018-02-12 05:32] LABS: Anion Gap 11 mmol/L (10-20); BUN (Urea Nitrogen) 12 mg/dL (9.8-20.1); Calc. Creatinine Clearance 65 mL/min (70-130); Calcium 8.1 mg/dL (7.8-10.44); Carbon Dioxide 24 mmol/L (23-31); Chloride 108 mmol/L (98-107); Estimated GFR-MDRD 45; Glucose 91 mg/dL (83-110); Potassium 3.5 mmol/L (3.5-5.1); Sodium 139 mmol/L (136-145)
--- NOTE | 2018-02-12 07:38 | PRG ---
DATE OF SERVICE: 02/11/2018 SUBJECTIVE: Feeling well, feeling better. No chest pain, little bit of back pain. No dyspnea or ab dominal pain. No diarrhea. Voiding without difficulty. OBJECTIVE: VITAL SIGNS: Temperature has been normal, T-max 98.4. Other vital signs are not remarkable. O2 sat 96%. GENERAL: Appears no distress. LUNGS: With basilar crackles left side. HEART: S1, S2, regular rate. ABDOMEN: Soft, not distended. No bladder distention. EXTREMITIES: No joint inflammatory activity. LABORATORY DATA: White cell count 15,000, hemoglobin 11, platelets 282. Sodium 140, creatinine 1.39 . Microbiology showed Staphylococcus hominis 2 samples positive for the same organism. Repeat CT of chest showed the area of left posterior basal infiltrate little bit of wedge shape to it. It is mor e rectangular really, renal ultrasound on 02/11 which showed no evidence of obstruction. The echocar diogram is pending. ASSESSMENT AND DISCUSSION: Coronary artery disease, chronic obstructive pulmonary disease, and recen t venous ablation of the pleuritic chest pain, leukocytosis. In view of the clinical and radiologica l findings, we will continue management for community-acquired pneumonia rather than thromboembolism or endocarditis. The organism in the blood cultures likely represents contamination of the sample ra ther than a true pathogen. But will wait for final results of echocardiogram. If no evidence of javy tation and discharge planning on oral doxycycline or levofloxacin for a few more days. Would advise repeating the duplex venogram of lower extremities in a few days to verify that there are no clots.
[2018-02-12] MEDS: Clopidogrel Bisulfate 75 MG TAB PO SCH (08:07)
[2018-02-12] MEDS: Aspirin 81 mg Enteric Coated Tablet PO SCH (08:07)
[2018-02-12] MEDS: guaiFENesin ER 600 MG TAB PO SCH (08:08)
[2018-02-12] MEDS: Enoxaparin Sodium 40 MG/0.4 ML SYRINGE SC SCH (08:08)
[2018-02-12] MEDS: predniSONE 20 MG TAB PO SCH (08:08)
--- NOTE | 2018-02-12 12:37 | PDOC.PN ---
- Subjective Encounter Start Date: 02/12/18 Encounter Start Time: 13:00 Subjective: Patient feeling a bit better. Off oxygen. Pain in left chest resolved. Now -: just with a little low back soreness. - Objective Resuscitation Status: Resuscitation Status FULL:Full Resuscitation MAR Reviewed: Yes Vital Signs & Weight: Vital Signs (12 hours) Temp Pulse Resp BP Pulse Ox 02/12/18 08:08 98.5 F 76 16 94 L 02/12/18 07:47 98.5 F 76 16 151/83 H 94 L 02/12/18 06:26 95 02/12/18 06:24 85 18 95 02/12/18 04:59 95 Weight Weight 210 lb I&O: 02/11/18 02/12/18 02/13/18 06:59 06:59 06:59 Intake Total 2290 1066 Balance 2290 1066 Result Diagrams: 02/12/18 04:32 02/12/18 04:32 Phys Exam - Physical Examination Constitutional: NAD HEENT: moist MMs Respiratory: no wheezing, no rales, no rhonchi Cardiovascular: RRR, no significant murmur Gastrointestinal: soft, positive bowel sounds Neurological: non-focal, moves all 4 limbs Psychiatric: normal affect, A&O x 3 Dx/Plan (1) CAP (community acquired pneumonia) Code(s): J18.9 - PNEUMONIA, UNSPECIFIED ORGANISM Status: Acute Qualifiers: Laterality: right Lung location: middle lobe of lung Qualified Code(s): J18.1 - Lobar pneumonia, unspecified organism Comment: On Levaquin, can d/c on oral tabs for 3 more days (2) Coag negative Staphylococcus bacteremia Code(s): R78.81 - BACTEREMIA Status: Resolved Comment: Staph hominus 2/2- likely contaminent per Dr. Dwyer. ECHO without evidence of vegitations. Repeat blood cultures NGTD (3) Sepsis Code(s): A41.9 - SEPSIS, UNSPECIFIED ORGANISM Status: Resolved (4) Acute on chronic kidney failure Code(s): N17.9 - ACUTE KIDNEY FAILURE, UNSPECIFIED; N18.9 - CHRONIC KIDNEY DISEASE, UNSPECIFIED Status: Acute Comment: Improving (5) CAD (coronary artery disease) Code(s): I25.10 - ATHSCL HEART DISEASE OF [place] CORONARY ARTERY W/O ANG PCTRS Status: Chronic (6) COPD (chronic obstructive pulmonary disease) Status: Chronic (7) Chronic CHF Code(s): I50.9 - HEART FAILURE, UNSPECIFIED Status: Chronic Qualifiers: Heart failure type: diastolic Qualified Code(s): I50.32 - Chronic diastolic (congestive) heart failure Comment: EF 55-60% with diastolic dysfunction 01/2018 (8) HLD (hyperlipidemia) Code(s): E78.5 - HYPERLIPIDEMIA, UNSPECIFIED Status: Chronic (9) HTN (hypertension) Code(s): I10 - ESSENTIAL (PRIMARY) HYPERTENSION Status: Chronic (10) [place] (obstructive sleep apnea) Code(s): G47.33 - OBSTRUCTIVE SLEEP APNEA (ADULT) (PEDIATRIC) Status: Chronic Comment: CPAP hs - Plan cont current plan of care, continue antibiotics, DVT proph w/lovenox, DVT proph w/SCDs Home today. * . - Discharge Day Encounter end time: 13:35
[2018-02-12 15:24] VITALS: BP 160/83; TEMP 97.8
[2018-02-12] MEDS ORDERED: traZODone HCl 50 MG TAB PO SCH (21:00)
--- NOTE | 2018-02-13 03:43 | DIS ---
PRIMARY CARE PHYSICIAN: Dr. Jaswant Garza. REASON FOR ADMISSION: Pneumonia. DIAGNOSES AT DISCHARGE: 1. Community-acquired pneumonia. 2. Coagulase-negative Staph bacteremia, likely contaminant. 3. Sepsis, resolved. 4. Acute on chronic kidney failure, improved. 5. Coronary artery disease. 6. Chronic obstructive pulmonary disease. 7. Chronic diastolic congestive heart failure. 8. Hyperlipidemia. 9. Hypertension. 10. Obstructive sleep apnea. PROCEDURES: 1. Bilateral lower extremity Doppler showing no evidence for DVT. 2. VQ scan showing low probability for pulmonary embolism. 3. CT of the chest without contrast showing a very small left-sided pleural effusion, similar to marlyn or exam, a focal area of consolidation involving the inferior-posterior left lower lobe suggestive of infectious pneumonitis or aspiration. 4. Bilateral renal ultrasound without any evidence of hydronephrosis or disease. 5. Echocardiogram showing a left ventricular ejection fraction of 55% to 60% and diastolic dysfuncti on. No evidence of valvular vegetations. CONSULTATIONS: 1. Infectious Disease, Dr. Dwyer. 2. Nephrology, Dr. Fowler. PERTINENT LABORATORY DATA: White blood cell count 14,000 up to 19,000 during the admission, down to 10,000 at discharge; creatinine 1.6 on admission, down to 1.1 at discharge. Blood culture initially from the emergency room showing 2/2 blood cultures positive for Staph hominis, subspecies hominis. R epeat blood cultures negative. SUMMARY OF HOSPITAL COURSE: This is a 72-year-old female with a history of COPD, coronary artery dis ease, hypertension, who presented to the [facility] with left-sided pleuritic chest pain. She also had subjective fevers. The patient was noted to have a pneumonia as well as an eleva evelyn D-dimer. She was given antibiotics and transferred here and had a negative VQ scan and negative ultrasound of lower extremities. The patient's initial blood cultures grew bacteria as above. Dr. Sylvia rodriguez with Infectious Disease was consulted. He determined that this was likely a contamination rathe r than a true pathogen. We did do the echocardiogram to rule out any infectious endocarditis. He re commended switching to levofloxacin for a few more days and a repeat ultrasound of the lower extremit ies as an outpatient to make sure that there were no blood clots. The patient was doing well the day of discharge, off of oxygen without any chest pain so he can be discharged home. DISCHARGE MANAGEMENT: Discharged home. Follow up with Dr. Garza early next week. We will need a r epeat ultrasound of the lower extremities at that time. ACTIVITY: As tolerated. DIET: Healthy heart, low sodium diet. DISCHARGE MEDICATIONS: 1. Levofloxacin 500 mg daily, 3 more tabs. 2. Aspirin 81 mg daily. 3. Clopidogrel 75 mg daily. 4. Pravastatin 20 mg daily. 5. Seroquel 100 mg daily. 6. Trazodone 100 mg daily. 7. Furosemide 20 mg every 7 days. 8. Trandolapril 4 mg daily.
== END 2018-02-12 18:03 | disposition home or self-care (01) | DRG 871 ==
LOC: ERS 05:16 → T4-B 05:55
PROVIDERS: ADMIT Internal Medicine; ATTEND Internal Medicine
DX: A41.9 Sepsis, unspecified organism (principal); J18.9 Pneumonia, unspecified organism; E87.1 Hypo-osmolality and hyponatremia; N17.9 Acute kidney failure, unspecified; I13.0 Hypertensive heart and chronic kidney disease with heart failure and stage 1 through stage 4 chronic kidney disease, or unspecified chronic kidney disease; I50.32 Chronic diastolic (congestive) heart failure; E87.2 Acidosis; I25.10 Atherosclerotic heart disease of native coronary artery without angina pectoris; J44.9 Chronic obstructive pulmonary disease, unspecified; E78.5 Hyperlipidemia, unspecified; N18.3 Chronic kidney disease, stage 3 (moderate); E87.6 Hypokalemia; G47.33 Obstructive sleep apnea (adult) (pediatric); E66.9 Obesity, unspecified; Z68.33 Body mass index [BMI] 33.0-33.9, adult; Z86.73 Personal history of transient ischemic attack (TIA), and cerebral infarction without residual deficits; Z88.1 Allergy status to other antibiotic agents; Z88.5 Allergy status to narcotic agent; Z88.2 Allergy status to sulfonamides; Z91.012 Allergy to eggs; Z88.8 Allergy status to other drugs, medicaments and biological substances; Z79.02 Long term (current) use of antithrombotics/antiplatelets; Z79.82 Long term (current) use of aspirin; Z79.899 Other long term (current) drug therapy
CPT/HCPCS: 36415; 71250; 76770; 78582; 80048; 81001; 83880; 85025; 85610; 85730; 87040; 93005; 93306; 93970; 94640; 94660; A4216; A9540; A9558; G8978-GP-CI; G8979-GP-CI; G8980-GP-CI; G8987-GO-CJ; G8988-GO-CI; J0456; J0696; J1650; J2920; J7050; J7506; J7620

== ENCOUNTER 2020-03-22 14:30 | Outpatient (CLI) | payer MEDICARE ==
--- NOTE | 2020-03-22 15:43 | MMO ---
Bilateral MAMMO Bilat Diag [facility]. CLINICAL HISTORY: Patient is 74 years old and is seen for diagnostic exam and palpable abnormality in the left breast at 1 o'clock. The patient has the following family history of breast cancer: 2 sisters, AGES: 37/49. The patient has a history of uterine cancer at age 32. VIEWS: The views performed were: bilateral craniocaudal with tomosynthesis; bilateral mediolateral oblique with tomosynthesis; and bilateral mediolateral with tomosynthesis. FILMS COMPARED: The present examination has been compared to prior imaging studies performed at [facility] on 03/05/2013 and 06/14/2015, and at [facility] on 03/22/2020. This study has been interpreted with the assistance of computer-aided detection. MAMMOGRAM FINDINGS: There are scattered fibroglandular densities. Benign calcifications are noted bilaterally. Palpable left breast nodule at 11:00 is not seen on mammo but is seen on US and should be biopsied. In the right breast, there are no suspicious masses, calcifications or areas of architectural distortion. IMPRESSION: FINDING IN THE LEFT BREAST IS SUSPICIOUS. AN ULTRASOUND-GUIDED BREAST BIOPSY IS RECOMMENDED. THE RESULTS OF THIS EXAM WERE SENT TO THE PATIENT. ACR BI-RADS Category 4 - Suspicious abnormality - biopsy should be considered MAMMOGRAPHY NOTE: 1. A negative mammogram report should not delay a biopsy if a dominant of clinically suspicious mass is present. 2. Approximately 10% to 15% of breast cancers are not detected by mammography. 3. Adenosis and dense breasts may obscure an underlying neoplasm. Reported by: ANGEL WANG MD Electonically Signed: [id number]
--- NOTE | 2020-03-22 15:53 | ULT ---
LEFT BREAST ULTRASOUND: HISTORY: Palpable abnormality of the 11 o'clock position of the left breast. Stroke family history of breast cancer. FINDINGS: Correlation is made with mammogram of the same date. Sonographic evaluation of the palpable abnormality at the 11 o'clock position of the left breast demo nstrates a complex 5 mm mass 4 cm from the nipple. IMPRESSION: BIRADS category 4 - suspicious abnormality. Ultrasound-guided biopsy is recommended. Discussed in person with the patient at 3:35 p.m. CODE CR POS: OFF
== END 2020-03-22 14:31 | disposition home or self-care (01) ==
LOC: BICMAMMO 14:30
PROVIDERS: ATTEND Family Medicine
DX: N63.20 Unspecified lump in the left breast, unspecified quadrant (principal)
CPT/HCPCS: 76642; 77066; G0279